=== PATIENT | female | born 1950 | race Two or more races ===

== ENCOUNTER 2018-03-21 09:25 | Outpatient (CLI) | payer OTHER | END 2018-03-21 15:26 | disposition home or self-care (01) | LOC: MAMO-SONO 09:25 | DX: C50.412 Malignant neoplasm of upper-outer quadrant of left female breast (principal); N60.11 Diffuse cystic mastopathy of right breast; N60.12 Diffuse cystic mastopathy of left breast ==

== ENCOUNTER 2019-10-03 08:14 | Outpatient (CLI) | payer OTHER | END 2019-10-03 08:16 | disposition home or self-care (01) | LOC: MAMO-SONO 08:14 | PROVIDERS: ATTEND Internal Medicine Hematology & Oncology | DX: C50.412 Malignant neoplasm of upper-outer quadrant of left female breast (principal); D50.8 Other iron deficiency anemias; D51.3 Other dietary vitamin B12 deficiency anemia; E55.9 Vitamin D deficiency, unspecified; R92.0 Mammographic microcalcification found on diagnostic imaging of breast; E08.65 Diabetes mellitus due to underlying condition with hyperglycemia; R91.8 Other nonspecific abnormal finding of lung field; I10 Essential (primary) hypertension; R76.11 Nonspecific reaction to tuberculin skin test without active tuberculosis; A49.2 Hemophilus influenzae infection, unspecified site ==

== ENCOUNTER → 2020-01-03 12:31 | Outpatient (CLI) | payer OTHER | END | disposition home or self-care (01) | LOC: LAB 12:31 | PROVIDERS: ATTEND Radiology Diagnostic Radiology | DX: N20.0 Calculus of kidney (principal) ==

== ENCOUNTER 2020-01-12 08:21 | Outpatient (CLI) | payer OTHER | END 2020-01-12 09:01 | disposition home or self-care (01) | LOC: OFIC 805 08:21 | PROVIDERS: ATTEND Otolaryngology Otology & Neurotology | DX: H92.03 Otalgia, bilateral (principal); H90.6 Mixed conductive and sensorineural hearing loss, bilateral; H61.23 Impacted cerumen, bilateral ==

== ENCOUNTER → 2020-01-16 | Outpatient (CLI) | payer OTHER | END | disposition home or self-care (01) | LOC: TOM 09:18 | PROVIDERS: ATTEND Internal Medicine Hematology & Oncology | DX: R91.8 Other nonspecific abnormal finding of lung field (principal); D50.8 Other iron deficiency anemias; C50.412 Malignant neoplasm of upper-outer quadrant of left female breast; D51.3 Other dietary vitamin B12 deficiency anemia; E55.9 Vitamin D deficiency, unspecified; R92.0 Mammographic microcalcification found on diagnostic imaging of breast; E08.65 Diabetes mellitus due to underlying condition with hyperglycemia; I10 Essential (primary) hypertension; R76.11 Nonspecific reaction to tuberculin skin test without active tuberculosis | CPT/HCPCS: 71260; 74177; Q9965 ==

== ENCOUNTER 2020-03-15 09:04 | Outpatient (CLI) | payer OTHER | END 2020-03-15 14:36 | disposition home or self-care (01) | LOC: OFIC 805 09:04 | PROVIDERS: ATTEND Otolaryngology Otology & Neurotology | DX: H91.13 Presbycusis, bilateral (principal); H92.03 Otalgia, bilateral; H61.23 Impacted cerumen, bilateral ==

== ENCOUNTER 2021-03-12 08:59 | Outpatient (CLI) | payer OTHER | END 2021-03-12 09:14 | disposition home or self-care (01) | LOC: MAMO-SONO 08:59 | PROVIDERS: ATTEND Internal Medicine Hematology & Oncology | DX: R92.0 Mammographic microcalcification found on diagnostic imaging of breast (principal); N60.11 Diffuse cystic mastopathy of right breast; K80.80 Other cholelithiasis without obstruction; N64.89 Other specified disorders of breast; D51.3 Other dietary vitamin B12 deficiency anemia; D50.8 Other iron deficiency anemias; I10 Essential (primary) hypertension; C50.412 Malignant neoplasm of upper-outer quadrant of left female breast; E55.9 Vitamin D deficiency, unspecified; E08.65 Diabetes mellitus due to underlying condition with hyperglycemia; R91.8 Other nonspecific abnormal finding of lung field; R76.11 Nonspecific reaction to tuberculin skin test without active tuberculosis; A49.2 Hemophilus influenzae infection, unspecified site ==

== ENCOUNTER 2023-01-05 08:24 | Outpatient (CLI) | payer OTHER | END 2023-01-05 08:32 | disposition home or self-care (01) | LOC: MAMO-SONO 08:24 | PROVIDERS: ATTEND Internal Medicine Hematology & Oncology | DX: C50.412 Malignant neoplasm of upper-outer quadrant of left female breast (principal); D50.8 Other iron deficiency anemias; D51.3 Other dietary vitamin B12 deficiency anemia; R92.0 Mammographic microcalcification found on diagnostic imaging of breast; E55.9 Vitamin D deficiency, unspecified; R91.8 Other nonspecific abnormal finding of lung field; R76.11 Nonspecific reaction to tuberculin skin test without active tuberculosis; A49.2 Hemophilus influenzae infection, unspecified site; K80.10 Calculus of gallbladder with chronic cholecystitis without obstruction ==

== ENCOUNTER 2023-05-26 08:29 | Outpatient (CLI) | payer OTHER | END 2023-05-26 08:34 | disposition home or self-care (01) | LOC: TOM 08:29 | PROVIDERS: ATTEND Internal Medicine Hematology & Oncology | DX: C50.412 Malignant neoplasm of upper-outer quadrant of left female breast (principal); R91.8 Other nonspecific abnormal finding of lung field; K80.10 Calculus of gallbladder with chronic cholecystitis without obstruction; D51.3 Other dietary vitamin B12 deficiency anemia; R92.0 Mammographic microcalcification found on diagnostic imaging of breast; E08.65 Diabetes mellitus due to underlying condition with hyperglycemia; I10 Essential (primary) hypertension; R76.11 Nonspecific reaction to tuberculin skin test without active tuberculosis | CPT/HCPCS: 71270; 74178; Q9965 ==

== ENCOUNTER 2024-05-09 09:21 | Outpatient (CLI) | payer OTHER | END 2024-05-09 09:32 | disposition home or self-care (01) | LOC: MAMO-SONO 09:21 | PROVIDERS: ATTEND Internal Medicine Hematology & Oncology | DX: C50.412 Malignant neoplasm of upper-outer quadrant of left female breast (principal); D50.8 Other iron deficiency anemias; D51.3 Other dietary vitamin B12 deficiency anemia; E55.9 Vitamin D deficiency, unspecified; R92.0 Mammographic microcalcification found on diagnostic imaging of breast; E08.65 Diabetes mellitus due to underlying condition with hyperglycemia; R91.8 Other nonspecific abnormal finding of lung field; I10 Essential (primary) hypertension; R76.11 Nonspecific reaction to tuberculin skin test without active tuberculosis; A49.2 Hemophilus influenzae infection, unspecified site; K80.10 Calculus of gallbladder with chronic cholecystitis without obstruction; M75.101 Unspecified rotator cuff tear or rupture of right shoulder, not specified as traumatic; N63.0 Unspecified lump in unspecified breast; N64.4 Mastodynia ==